=== PATIENT | male | born 1940 | race Hispanic/Latino ===

== ENCOUNTER 2023-10-14 01:07 | Inpatient (IN) | payer OTHER ==
[~2023-10-14] VITALS: Ht 172.7 cm; Wt 90.7 kg
[2023-10-14] VITALS (7 sets, daily range): BP systolic 98–126; BP diastolic 51–61; PULSE 61–81; RESP 18–20; O2SAT 95–97
[2023-10-14 02:09] LABS: BASOPHILS # (AUTO) 0.01 K/uL (0.00-0.20); BASOPHILS % (AUTO) 0.1 % (0.0-5.0); IMMATURE GRANULOCYTE ABSOLUTE 0.07 K/uL (0-1); LYMPHOCYTES # (AUTO) 1.3 K/uL (1.0-4.8); LYMPHOCYTES % (AUTO) 13.2 % (21.0-51.0); MEAN CORPUSCULAR HEMOGLOBIN 30.7 pg (27.0-33.0); MEAN CORPUSCULAR HGB CONC 34.6 g/dL (32.0-36.0); MEAN CORPUSCULAR VOLUME 88.6 fL (79-99); MONOCYTES # (AUTO) 0.4 K/uL (0.1-1.0); MONOCYTES % (AUTO) 4.6 % (3.0-13.0); NEUTROPHILS # (AUTO) 7.7 K/uL (1.8-7.7); NEUTROPHILS % (AUTO) 81.4 % (40.0-77.0); PLATELET COUNT (AUTO) 162 K/uL (130-400); RED BLOOD CELL COUNT(AUTO) 2.02 MIL/uL (4.50-6.20); RED CELL DISTRIBUTION WIDTH 13.1 % (11.0-15.5); WHITE BLOOD COUNT (AUTO) 9.5 K/uL (4.8-10.8)
[2023-10-14 02:20] LABS: INR 1.01 (0.85-1.15); PROTHROMBIN TIME 11.9 SEC (9.6-11.6)
[2023-10-14 02:25] LABS: ALBUMIN 3.3 g/dL (3.5-5.0); CREATININE 1.5 mg/dL (0.5-1.3); POTASSIUM 4.4 mmol/L (3.5-5.1); TOTAL PROTEIN, SERUM 5.6 g/dL (6.0-8.3)
[2023-10-14 02:33] LABS: HEMATOCRIT 17.9 % (42-54)
[2023-10-14 02:45] LABS: APPEARANCE,URINE CLEAR (CLEAR); BILIRUBIN,URINE NEGATIVE (NEGATIVE); COLOR,URINE LIGHT-YELLOW (YELLOW); GLUCOSE, URINE (UA) NEGATIVE (NEGATIVE); KETONES,URINE NEGATIVE (NEGATIVE); LEUKOCYTE ESTERASE ,URINE 500 Leu/uL (NEGATIVE); MUCUS,URINE RARE LPF (None Seen); NITRATE,URINE NEGATIVE (NEGATIVE); OCCULT BLOOD,URINE MODERATE (NEGATIVE); PROTEIN,URINE NEGATIVE (NEGATIVE); SQUAMOUS EPITHELIAL CELL,UR RARE /HPF (0-2); UROBILINOGEN,URINE 0.2 mg/dL (0.2-1.0)
[2023-10-14 02:49] LABS: PARTIAL THROMBOPLASTIN TIME 19.1 SEC (26.3-35.5)
[2023-10-14] MEDS ORDERED: ALBUTEROL 0.083% 2.5 MG/3 ML INH IH PRN (03:30)
[2023-10-14] MEDS ORDERED: HYDRALAZINE 20MG/ML VIAL IV PRN (03:30)
[2023-10-14] MEDS ORDERED: IPRATROPIUM 0.5 MG/2.5 ML INH IH PRN (03:30)
[2023-10-14] MEDS ORDERED: ONDANSETRON 4MG INJ IVP PRN (03:30)
[2023-10-14] MEDS: 0.9%NACL 1000ML 1,000 ML IV ONE (03:30)
[2023-10-14] MEDS ORDERED: ACETAMINOPHEN 650 MG SUPPOSITORY RC PRN (03:30)
[2023-10-14] MEDS: PANTOPRAZOLE 40 MG/VIAL IVP SCH (03:31)
[2023-10-14] MEDS ORDERED: CARV25TA77 PO (07:12)
[2023-10-14] MEDS ORDERED: GABA-529 PO (07:12)
[2023-10-14] MEDS ORDERED: ESCI10TA PO (07:13)
[2023-10-14] MEDS ORDERED: CLON0.5T2 PO (07:13)
[2023-10-14] MEDS ORDERED: OLME40TA70 PO (07:14)
[2023-10-14] MEDS ORDERED: SITA1TBM7 PO (07:15)
[2023-10-14] MEDS ORDERED: SIMV-344 PO (07:15)
[2023-10-14] MEDS ORDERED: CLOP-31 PO (07:21)
[2023-10-14] MEDS ORDERED: INSU100I45 SQ (07:21)
[2023-10-14] MEDS: INSULIN HUMULIN R 100 UNIT/ML 3ML SQ SCH (07:30)
[2023-10-14] MEDS: CEFTRIAXONE 2GM VIAL IVPB SCH (07:40)
[2023-10-14] MEDS ORDERED: PANTOPRAZOLE 40 MG/VIAL IVP SCH (09:00)
[2023-10-14 09:23] LABS: HEMATOCRIT 21.6 % (42-54)
[2023-10-14 10:14] LABS: HEMATOCRIT 21.3 % (42-54)
[2023-10-14] MEDS: ACETAMINOPHEN 325 MG TAB PO PRN (11:58)
[2023-10-14] MEDS: 0.9%NACL 1000ML 1,000 ML IV SCH (17:14)
[2023-10-14] MEDS: CLONAZEPAM 0.5 MG TABLET PO SCH (20:47)
[2023-10-14] MEDS: GABAPENTIN 100 MG CAPSULE PO SCH (20:47)
[2023-10-15] VITALS (23 sets, daily range): BP systolic 108–162; BP diastolic 40–78; PULSE 58–80; RESP 12–20; O2SAT 96
[2023-10-15 03:44] LABS: BASOPHILS # (AUTO) 0.01 K/uL (0.00-0.20); BASOPHILS % (AUTO) 0.2 % (0.0-5.0); EOSINOPHILS # (AUTO) 0.09 K/uL (0.00-0.70); EOSINOPHILS % (AUTO) 1.5 % (0.0-8.0); IMMATURE GRANULOCYTE ABSOLUTE 0.02 K/uL (0-1); LYMPHOCYTES # (AUTO) 1.9 K/uL (1.0-4.8); LYMPHOCYTES % (AUTO) 31.5 % (21.0-51.0); MEAN CORPUSCULAR HEMOGLOBIN 31.4 pg (27.0-33.0); MEAN CORPUSCULAR HGB CONC 34.3 g/dL (32.0-36.0); MEAN CORPUSCULAR VOLUME 91.5 fL (79-99); MONOCYTES # (AUTO) 0.6 K/uL (0.1-1.0); MONOCYTES % (AUTO) 10.4 % (3.0-13.0); NEUTROPHILS # (AUTO) 3.3 K/uL (1.8-7.7); NEUTROPHILS % (AUTO) 56.1 % (40.0-77.0); PLATELET COUNT (AUTO) 144 K/uL (130-400); RED BLOOD CELL COUNT(AUTO) 2.23 MIL/uL (4.50-6.20); RED CELL DISTRIBUTION WIDTH 13.4 % (11.0-15.5); WHITE BLOOD COUNT (AUTO) 5.9 K/uL (4.8-10.8)
[2023-10-15 04:00] LABS: CREATININE 1.2 mg/dL (0.5-1.3); MAGNESIUM 1.9 mg/dL (1.80-2.40); POTASSIUM 3.8 mmol/L (3.5-5.1)
[2023-10-15 04:12] LABS: HEMATOCRIT 20.4 % (42-54)
[2023-10-15] MEDS: MAGNESIUM 2GM PREMIX 50ML 50 ML IV PRN (06:52)
[2023-10-15] MEDS: CITALOPRAM 20 MG TABLET PO SCH (07:42)
[2023-10-15] MEDS ORDERED: NON-FORMULARY MEDICATION 1 EACH (Escitalopram Oxalate (Lexapro) 10 MG) PO SCH (09:00)
[2023-10-15] MEDS ORDERED: FENTANYL CITRATE PF 50 MCG/1 ML 2ML VIAL ONE (12:40)
[2023-10-15] MEDS ORDERED: MIDAZOLAM HCL 1 MG/ML 2ML VIAL ONE (12:40)
[2023-10-15] MEDS ORDERED: PROPOFOL 10 MG/ML 20ML VIAL IV ONE (14:17)
[2023-10-15] MEDS ORDERED: LIDOCAINE PF 100MG/5ML (2%) SYRINGE 5ML ONE (14:17)
[2023-10-15] MEDS: TEMAZEPAM 15 MG CAPSULE PO PRN (21:13)
[2023-10-15] MEDS: METOPROLOL TARTRATE 1 MG/ML 5ML VIAL IV SCH (22:27)
[2023-10-16 03:58] VITALS: BP 108/54; PULSE 74; RESP 18
[2023-10-16 05:16] LABS: HEMATOCRIT 25.2 % (42-54); MEAN CORPUSCULAR HEMOGLOBIN 31.1 pg (27.0-33.0); MEAN CORPUSCULAR HGB CONC 33.7 g/dL (32.0-36.0); MEAN CORPUSCULAR VOLUME 92.3 fL (79-99); RED BLOOD CELL COUNT(AUTO) 2.73 MIL/uL (4.50-6.20); RED CELL DISTRIBUTION WIDTH 14.2 % (11.0-15.5)
[2023-10-16 05:32] LABS: CREATININE 1.1 mg/dL (0.5-1.3); MAGNESIUM 1.9 mg/dL (1.80-2.40)
[2023-10-16 06:45] VITALS: PULSE 55; RESP 18; O2SAT 97
[2023-10-16 07:48] VITALS: O2SAT 96
[2023-10-16 08:00] VITALS: BP 119/45; PULSE 71; RESP 18
[2023-10-16 12:00] VITALS: BP 123/57; PULSE 76; RESP 18
[2023-10-16] MEDS ORDERED: PANT40TA PO (14:38)
== END 2023-10-16 15:37 | disposition left against medical advice (07) | DRG 378 ==
LOC: EDH 01:07 → OBSVTOIN 03:08 → EDHIP 03:08 → 4CH 12:28
PROVIDERS: ADMIT Internal Medicine Critical Care Medicine; ATTEND Internal Medicine Critical Care Medicine
PROC: 30233N1 Transfusion of Nonautologous Red Blood Cells into Peripheral Vein, Percutaneous Approach (ICD-10-PCS; principal; 2023-10-14)
PROC: 0DB98ZX Excision of Duodenum, Via Natural or Artificial Opening Endoscopic, Diagnostic (ICD-10-PCS; 2023-10-15)
PROC: 0DB78ZX Excision of Stomach, Pylorus, Via Natural or Artificial Opening Endoscopic, Diagnostic (ICD-10-PCS; 2023-10-15)
DX: K29.71 Gastritis, unspecified, with bleeding (principal); E87.1 Hypo-osmolality and hyponatremia; N30.01 Acute cystitis with hematuria; N17.9 Acute kidney failure, unspecified; I13.0 Hypertensive heart and chronic kidney disease with heart failure and stage 1 through stage 4 chronic kidney disease, or unspecified chronic kidney disease; K26.4 Chronic or unspecified duodenal ulcer with hemorrhage; D64.9 Anemia, unspecified; I25.10 Atherosclerotic heart disease of native coronary artery without angina pectoris; N18.2 Chronic kidney disease, stage 2 (mild); F03.90 Unspecified dementia, unspecified severity, without behavioral disturbance, psychotic disturbance, mood disturbance, and anxiety; F41.9 Anxiety disorder, unspecified; E11.22 Type 2 diabetes mellitus with diabetic chronic kidney disease; E66.9 Obesity, unspecified; E87.8 Other disorders of electrolyte and fluid balance, not elsewhere classified; I50.9 Heart failure, unspecified; Z82.49 Family history of ischemic heart disease and other diseases of the circulatory system; Z68.30 Body mass index [BMI] 30.0-30.9, adult; Z95.1 Presence of aortocoronary bypass graft; Z88.8 Allergy status to other drugs, medicaments and biological substances; Z86.718 Personal history of other venous thrombosis and embolism; Z79.4 Long term (current) use of insulin; Z79.899 Other long term (current) drug therapy
CPT/HCPCS: 36415; 43239; 70450; 71045; 74176; 80048; 80053; 81001; 82270; 82550; 82948; 83735; 83880; 84100; 84484; 85014; 85018; 85025; 85027; 85610; 85730; 86850; 86900; 86901; 86923; 87088; 93005; 93970; A4606; C9113; G0378; J0696; J2001; J2250; J2704; J3010; J3475; J3490; J7030; P9016; A4215; A4221; A4222; A4223; A4620; A4663; A7002; G8980-CH; G8980-CI; G8983-CH; G8983-CI